=== PATIENT | male | born 1980 | race Caucasian/White ===

== ENCOUNTER 2023-07-30 09:49 | Emergency (ER) | payer BC | END 2023-07-30 10:47 | disposition home or self-care (01) | LOC: BURERS 09:49 | DX: S86.812A Strain of other muscle(s) and tendon(s) at lower leg level, left leg, initial encounter (principal); I10 Essential (primary) hypertension; F17.200 Nicotine dependence, unspecified, uncomplicated; Z79.899 Other long term (current) drug therapy; X50.9XXA Other and unspecified overexertion or strenuous movements or postures, initial encounter | CPT/HCPCS: 99283 ==